=== PATIENT | male | born 1990 | race Caucasian/White ===

== ENCOUNTER → 2019-05-21 | Emergency (ER) | payer SELFPAY, MEDICAID ==
[2019-05-21] MEDS: LORAZEPAM 2 MG INJ IM (15:16)
[2019-05-21 15:43] LABS: AMPHETAMINE/METHAMPHETAMINE Negative (NEGATIVE); BARBITURATES Negative (NEGATIVE); CANNABINOIDS Positive (NEGATIVE); OPIATES Negative (NEGATIVE)
[2019-05-21 15:57] LABS: BENZODIAZEPINES Negative (NEGATIVE); COCAINE Negative (NEGATIVE)
== END | disposition home or self-care (01) ==
LOC: FTE 13:49
DX: F41.9 Anxiety disorder, unspecified (principal); R06.02 Shortness of breath
CPT/HCPCS: 80307; 93005; 96372; 99284-25